=== PATIENT | male | born 1950 | race Caucasian/White ===

== ENCOUNTER 2021-11-01 10:21 | Outpatient (CLI) | payer MEDICARE ==
[2021-11-01 21:42] LABS: SARS-CoV-2 PCR by NAA Not Detected (NotDetected)
== END 2021-11-01 10:22 | disposition home or self-care (01) ==
LOC: CSHLAB 10:21
PROVIDERS: ATTEND Internal Medicine Gastroenterology
DX: Z20.822 Contact with and (suspected) exposure to COVID-19 (principal); Z12.11 Encounter for screening for malignant neoplasm of colon
CPT/HCPCS: U0003; U0005

== ENCOUNTER 2021-11-04 06:23 | Day surgery (SDC) | payer MEDICARE ==
[2021-11-02 12:18] VITALS: BMI 27.4
[2021-11-04] MEDS ORDERED: Lidocaine 1% MPF 2 ML VIAL ONE (06:34)
[2021-11-04] MEDS ORDERED: Lidocaine 1% PF 5 ML VIAL ONE (07:20)
[2021-11-04] MEDS ORDERED: PROPOFOL 40 ML ONE (07:20)
== END 2021-11-04 08:40 | disposition home or self-care (01) ==
LOC: CSHSDC 06:23
PROVIDERS: ATTEND Internal Medicine Gastroenterology
PROC: 0DBM8ZZ Excision of Descending Colon, Via Natural or Artificial Opening Endoscopic (ICD-10-PCS; principal; 2021-11-04)
DX: Z12.11 Encounter for screening for malignant neoplasm of colon (principal); D12.4 Benign neoplasm of descending colon; K57.30 Diverticulosis of large intestine without perforation or abscess without bleeding; K62.89 Other specified diseases of anus and rectum; J45.909 Unspecified asthma, uncomplicated; E78.5 Hyperlipidemia, unspecified
CPT/HCPCS: 88305; J2704